=== PATIENT | male | born 2000 | race Two or more races ===

== ENCOUNTER 2023-06-09 21:23 | Emergency (ER) | payer OTHER ==
[~2023-06-09] VITALS: Ht 175.3 cm; Wt 81.6 kg
[2023-06-09] MEDS ORDERED: MAXITROL EYE DRO5 ML OP (22:35)
== END 2023-06-09 22:51 | disposition home or self-care (01) ==
LOC: ER 21:24
DX: S05.92XA Unspecified injury of left eye and orbit, initial encounter (principal); X58.XXXA Exposure to other specified factors, initial encounter; Y93.89 Activity, other specified; Y92.89 Other specified places as the place of occurrence of the external cause; Y99.8 Other external cause status